=== PATIENT | female | born 1955 | race Caucasian/White ===

== ENCOUNTER 2016-12-06 09:44 | Emergency (ER) | payer OTHER ==
[2016-12-06 10:11] VITALS: BP 93/56
--- NOTE | 2016-12-06 10:22 | UC ---
Ear Complaint HPI - HPI Summary HPI Summary: ear plug stuck in left ear - History of Current Complaint Chief Complaint: UCEar Stated Complaint: EAR COMPLAINT Time Seen by Provider: 12/06/16 10:09 Hx Obtained From: Patient ?: No Onset/Duration: Sudden Onset, Lasting Days - 3 Severity Initially: Mild Severity Currently: Mild Pain Intensity: 2 Pain Scale Used: 0-10 Numeric Aggravating Factors: Nothing Alleviating Factors: Nothing Associated Signs/Symptoms: Positive: Hearing Loss, Foreign Body Sensation - Allergies/Home Medications Allergies/Adverse Reactions: Allergies Allergy/AdvReac Type Severity Reaction Status Date / Time SUGAR Allergy Congestion Uncoded 03/28/15 10:48 Home Medications: Home Medications Gabapentin TAB(NF) [Neurontin 600 mg TAB(NF)] 300 mg PO 12/06/16 [History] PMH/Surg Hx/FS Hx/Imm Hx Previously Healthy: Yes - Surgical History Surgical History: Yes Surgery Procedure, Year, and Place: anal fissure 2009. tonsillectomy. BASIL CELL REMOVED OFF NOSE - Family History Known Family History: Positive: None - Social History Occupation: Retired Lives: With Family Alcohol Use: Rare Substance Use Type: None Smoking Status (MU): Never Smoked Tobacco - Immunization History Most Recent Tetanus Shot: unknown - states she doesn't want it Review of Systems Constitutional: Negative Skin: Negative Eyes: Negative ENT: Negative, Ear Ache - hearing loss has an ear plug stuck in ear Respiratory: Negative Cardiovascular: Negative Gastrointestinal: Negative Genitourinary: Negative Motor: Negative Neurovascular: Negative Musculoskeletal: Negative Neurological: Negative Psychological: Negative All Other Systems Reviewed And Are Negative: Yes Physical Exam Triage Information Reviewed: Yes Appearance: Well-Appearing, No Pain Distress, Well-Nourished Vital Signs: Initial Vital Signs Temp 98.3 F 12/06/16 10:08 Pulse 81 12/06/16 10:08 Resp 18 12/06/16 10:08 BP 93/56 12/06/16 10:08 Pulse Ox 99 12/06/16 10:08 Vital Signs Reviewed: Yes Eye Exam: Normal Eyes: Positive: Conjunctiva Clear ENT Exam: Normal ENT: Positive: Normal ENT inspection, Hearing grossly normal, TMs normal, Other : - fb left canal removed with ear---no evidence of injury or infection. Negative: Nasal congestion, Nasal drainage, Trismus, Muffled/hoarse voice Dental Exam: Normal Neck exam: Normal Neck: Positive: Supple, Nontender, No Lymphadenopathy Respiratory Exam: Normal Respiratory: Positive: Chest non-tender, No respiratory distress, No accessory muscle use Cardiovascular Exam: Normal Cardiovascular: Positive: RRR, Pulses Normal, Brisk Capillary Refill Musculoskeletal Exam: Normal Musculoskeletal: Positive: Strength Intact, ROM Intact Neurological Exam: Normal Neurological: Positive: Alert, Muscle Tone Normal Psychological Exam: Normal Skin Exam: Normal Re-Evaluation - Re-Evaluation First Eval Change: Improved - FB removed with ease, patient reports feeling better Ear Complaint Course/Dx - Course Course Of Treatment: follow with pcp prn - Differential Dx/Diagnosis Differential Diagnosis/HQI/PQRI: Cerumen Impaction, Foreign Body, URI Provider Diagnoses: FB Removed from left ear Discharge - Discharge Plan Condition: Stable Disposition: HOME Patient Education Materials: Ear Foreign Body (ED) Referrals: Apollo Mariee MD [Primary Care Provider] - If Needed
== END 2016-12-06 10:44 | disposition home or self-care (01) ==
LOC: UCEAST 09:44
DX: T16.2XXA Foreign body in left ear, initial encounter (principal)
CPT/HCPCS: 69000; 99211; G0463

== ENCOUNTER 2018-07-07 12:46 | Emergency (ER) | payer OTHER ==
--- NOTE | 2018-07-07 14:17 | ED ---
Palpitations / Dysrhythmia - HPI Summary HPI Summary: Patient is a 62-year-old female who is presenting to the ED with concern for palpitations. She states symptoms began approximately 3 weeks ago with a near syncopal episode and sxs of vertigo. She states while these resolved, since that time, she has been having sxs of fatigue and a few episodes of heart racing. She has an appt with a scalp treatment operator in 2 weeks, but felt if she came today d/t her sxs, she may be able to see a scalp treatment operator. She denies any chest pain or shortness of breath. Denies any abdominal pain. She states she recently stopped taking her Neurontin approximately 2 weeks ago and felt this may be contributory. She is not having any sxs at this time. She takes no medications. She states she is otherwise very active and retuning does yoga, however has felt fatigued recently and has not been doing her normal activities. This is concerning for her. - History of Current Complaint Chief Complaint: EDDysrhythmPalp Time Seen by Provider: 07/07/18 12:56 Hx Obtained From: Patient Onset/Duration: Sudden Onset Timing: Constant Severity Initially: Mild Severity Currently: Mild Associated Signs & Symptoms: Negative - Risk Factors Cardiac: Negative Pulmonary Embolism: Negative Atrial Fibrillation: Negative - Allergy/Home Medications Allergies/Adverse Reactions: Allergies Allergy/AdvReac Type Severity Reaction Status Date / Time SUGAR Allergy Congestion Uncoded 07/07/18 12:52 Home Medications: Home Medications NK [No Home Medications Reported] 07/07/18 [History Confirmed 07/07/18] PMH/Surg Hx/FS Hx/Imm Hx Previously Healthy: Yes Endocrine/Hematology History: Denies: Hx Diabetes, Hx Thyroid Disease Cardiovascular History: Denies: Hx Hypertension, Hx Pacemaker/ICD Respiratory History: Denies: Hx Asthma, Hx Chronic Obstructive Pulmonary Disease (COPD) GI History: Reports: Other GI Disorders Denies: Hx Ulcer History: Denies: Hx Renal Disease Sensory History: Denies: Hx Hearing Aid Psychiatric History: Denies: Hx Panic Disorder - Cancer History Cancer Type, 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 tonsillectomy. 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 - Immunization History Hx Pertussis Vaccination: No Immunizations Up to Date: No Infectious Disease History: No Infectious Disease History: Denies: Hx Clostridium Difficile, Hx Hepatitis, Hx Human Immunodeficiency Virus (HIV), Hx of Known/Suspected MRSA, Hx Shingles, Hx Tuberculosis, Traveled Outside the [place] in Last 30 Days - Family History Known Family History: Positive: None, Other - noncontributory - Social History Occupation: Unemployed Lives: With Family Alcohol Use: None Hx Substance Use: No Substance Use Type: Reports: None Smoking Status (MU): Never Smoked Tobacco Review of Systems Negative: Fever, Chills, Fatigue, Skin Diaphoresis Negative: Dental Pain, Sore Throat Positive: Other - tachycardia. Negative: Palpitations, Chest Pain Negative: Shortness Of Breath, Cough Genitourinary: Negative Positive: no symptoms reported, see HPI Negative: Rash, Bruising Psychological: Normal All Other Systems Reviewed And Are Negative: Yes - any crepitus Physical Exam Triage Information Reviewed: Yes Vital Signs On Initial Exam: Initial Vitals Temp Pulse Resp BP Pulse Ox 97.7 F 83 16 100/66 100 07/07/18 12:49 07/07/18 12:49 07/07/18 12:49 07/07/18 12:49 07/07/18 12:49 Vital Signs Reviewed: Yes Appearance: Positive: Well-Appearing, Well-Nourished Skin: Positive: Warm, Skin Color Reflects Adequate Perfusion Head/Face: Positive: Normal Head/Face Inspection Eyes: Positive: EOMI, NORBERTO, Conjunctiva Clear Neck: Positive: Supple, No Lymphadenopathy Respiratory/Lung Sounds: Positive: Clear to Auscultation, Breath Sounds Present Cardiovascular: Positive: RRR, Pulses are Symmetrical in both Upper and Lower Extremities Musculoskeletal: Positive: Normal, Strength/ROM Intact Neurological: Positive: Sensory/Motor Intact, Alert, Oriented to Person Place, Time Psychiatric: Positive: Normal, Affect/Mood Appropriate Diagnostics - Vital Signs Vital Signs Temp Pulse Resp BP Pulse Ox 07/07/18 12:49 97.7 F 83 16 100/66 100 - Laboratory Result Diagrams: 07/07/18 14:14 07/07/18 14:14 Lab Statement: Any lab studies that have been ordered have been reviewed, and results considered in the medical decision making process. Course/Dx - Course Course Of Treatment: During the course of treatment, the patient is evaluated for a few episodes of feeling tachycardic. She is concerned for her heart. Labs obtained which show a troponin I 0.00. Chest x-ray shows no acute cardiopulmonary disease. Vital signs are stable. Discussed with patient at length these findings. Still awaiting T4 and TSH which could be contributory. She states she always feels her thyroid is off, but his been told in the past this is normal for her. She states she probably will not follow up with the scalp treatment operator in 2 weeks if everything is normal. I have encouraged her to continue that follow-up to the scalp treatment operator in 2 weeks, however everything today is stable and she is okay for discharge at this time. - Diagnoses Provider Diagnoses: Tachycardia Discharge - Sign-Out/Discharge Documenting (check all that apply): Patient Departure Patient Received Moderate/Deep Sedation with Procedure: No - Discharge Plan Condition: Stable Disposition: HOME Patient Education Materials: Tachycardia (ED) Referrals: Apollo Mariee MD [Primary Care Provider] - Chema Smalls MD [Medical Doctor] - Additional Instructions: I have given you a cardiology referral If any symptoms become worse - return to the ED I have given you information for tachycardia, however you did not have this today during your visit - Billing Disposition and Condition Condition: STABLE Disposition: Home
[2018-07-07 14:23] LABS: ABS Basophils 0.1 10^3/ul (0-0.2); ABS Eosinophils 0.1 10^3/ul (0-0.6); ABS Lymphocytes 1.3 10^3/ul (1.0-4.8); ABS Monocytes 0.5 10^3/ul (0-0.8); ABS Neutrophils 2.5 10^3/ul (1.5-7.7); ABS Nucleated RBC 0 10^3/ul; Hematocrit 39 % (33-41); Hemoglobin 13.2 g/dL (12.0-16.0); Lymphocyte % 28.8 %; Mean Corpuscular HGB Conc 34 g/dL (31-36); Mean Corpuscular Hemoglobin 32 pg (27-31); Mean Corpuscular Volume 93 fL (80-97); Mean Platelet Volume 7.3 fL (7.4-10.4); Nucleated Red Blood Cells % 0; Platelet Count 234 10^3/uL (150-450); Red Blood Count 4.19 10^6 /uL (3.70-4.87); Red Cell Distribution Width 13 % (10.5-15); White Blood Count 4.5 10^3/uL (3.5-10.8)
--- OUTSIDE RECORDS SUMMARY | 2018-07-07 14:25 | XMS REPORT | Continuity of Care Document ---
:1955 External Reference #:[id number] Author Name Forrest Thomson MD Address [address] [place] [address] Care Team Providers Name Role Phone Apollo Mariee MD Care Team Information Chief Electrician Unavailable Apollo Mariee MD Primary Care Physician Unavailable Payers Date Identification Numbers Payment Provider Subscriber Policy Number: [id number] [facility] Estefanía Mohan Group Number: [id number] [address] Group Name: [place] [address] PayID: [id number] Advance Directives Description No Information Available Problems Date Description Provider Status Onset: 03/16/2007 Hypothyroidism Apollo Mariee M.D. Active Onset: 03/16/2007 Restless legs Apollo Mariee M.D. Active Onset: 12/07/2017 Telogen effluvium Apollo Mariee M.D. Active Onset: 10/28/2016 Chronic pain syndrome Apollo Mariee M.D. Active Onset: 02/10/2016 Elongated styloid process syndrome Keenan Briseno M.D. Active Onset: 07/20/2013 Backache Keenan Briseno M.D. Active Onset: 07/20/2013 Disorder of shoulder Keenan Briseno M.D. Active Onset: 04/15/2011 Cough Apollo Mariee M.D. Active Onset: 04/15/2011 H/O: food allergy Apollo Mariee M.D. Active Onset: 04/15/2011 Simple goiter Apollo Mariee M.D. Active Family History Date Family Member(s) Observation Comments Father Alzheimer's Disease Father Prostate Cancer Onset: (age 54 Years) Mother Colon Cancer Social History Type Date Description Comments Sex Unknown Marital Status Patient is single Living Situation Friend Employment Currently working - running a guest house Tobacco Use Start: Unknown End: Former Cigarette Smoker Unknown ETOH Use Rare Tobacco Use Start: Unknown Patient has never smoked Exercise Type/Frequency Exercises sporadically Current Allergies, Adverse Reactions, Alerts Description No Known Drug Allergies Medications Medication Date Status Form Strength Qnty SIG Indications Ordering Provider Gabapentin 10/28 Active Capsules 300mg 90cap take one Apollo A. s capsule Kodi, by mouth M.D. once a day as directed Supplements Active as Unknown /0000 directed Flector 12/22 Hx Patches 1.3% 60uni apply one Apollo ts patch to Kodi - the most M.DDeeap 06/09 painful /2019 area twice a day Physical Therapy 10/28 Hx treatment M25.562 Apollo A. and Kodi - evaluatio M.D. 12/07 n of back pain Cyclobenzaprine 02/09 Hx Tablets 5mg 30tab take 1 to M54.89 Keenan T. s 2 tablets Finn, - by mouth M.D. 10/28 at bedtime for muscle spasms Physical Therapy 03/05 Hx treatment M25.562 and Kameron, - evaluatio Afnp-C 02/09 n of L knee pain Physical Therapy 07/20 Hx treatment Keenan T. and Finn, - evaluatio M.D. 03/05 n shoulder pain Physical Therapy 01/19 Hx treatment Apollo A. and Kodi, - evaluatio M.D. 03/20 n back,Neck And Hip pain Levaquin 10/08 Hx Tablets 500mg 10tab 1 po qd x s 10 days [facility] 09/29 Of Doxycycline 09/30 Hx Capsules 100mg 20cap 1 po bid cl s X 2 [facility] 09/29 Of Gabapentin 04/25 Hx Tabs 600mg 30tab take 1/2 s to 1 Kameron, - tablet at Afnp-C 02/09 bedtime Requip 05/23 Hx PO Q hs [facility] 08/29 Of Multivitamins 05/23 Hx Tablets 30tab as s Directed [facility] 04/15 Of Neurontin 03/16 Hx Capsules 600mg 30cap 1/2 or 1 Apollo A. /2006 s po qhs Kodi - M.D. 08/29 Hormone Cream 01/28 Hx Cream Compounded 30Day biest Olvin Nguyen /2005 80/20 Finver, - 0.25mg/0. M.D. 03/16 2cc ; progester one 50mg/0.2c c apply 0.1cc bid as directed Saliva Testing 11/18 Hx Single 1Kit full Olvin Nguyen Hormones Cortisol female Florence - panel M.D. 03/16 cortisol. PT will be calling. [place] Thyroid 09/21 Hx Tablets 15mg 60tab 1 po bid Olvin JDeepa /2005 s on empty Florence - stomach M.D. 05/23 Neurontin 09/10 Hx Capsules 300mg 1 as needed Medicine - for back [facility] 03/16 pain Of Melatonin 00/00 Hx Tablets 3mg 2 po qhs Unknown /0000 prn - 02/09 Melatonin 00/00 Hx Capsules 5mg 30cap one tab Unknown /0000 s po qhs - 07/20 Immunizations Description No Information Available Vital Signs Date Vital Result Comment 06/09/2018 1:36pm BP Systolic 100 mmHg BP Diastolic 44 mmHg Heart Rate 84 /min Body Temperature 97.7 F Respiratory Rate 17 /min Weight 126.00 lb 12/07/2017 11:05am BP Systolic 100 mmHg BP Diastolic 60 mmHg Heart Rate 76 /min Body Temperature 98.9 F Respiratory Rate 16 /min Height 65.75 inches 5'5.75" Weight 127.00 lb BMI (Body Mass Index) 20.7 kg/m2 10/28/2016 4:32pm BP Systolic 124 mmHg BP Diastolic 72 mmHg Heart Rate 80 /min Body Temperature 99.0 F Respiratory Rate 16 /min Height 65.75 inches 5'5.75" Weight 126.50 lb BMI (Body Mass Index) 20.6 kg/m2 02/10/2016 8:31pm BP Systolic 100 mmHg BP Diastolic 64 mmHg Heart Rate 60 /min Body Temperature 98.1 F Respiratory Rate 16 /min Height 65.75 inches 5'5.75" Weight 123.12 lb BMI (Body Mass Index) 20.0 kg/m2 03/05/2015 1:49pm BP Systolic 90 mmHg BP Diastolic 60 mmHg Heart Rate 72 /min Body Temperature 97.6 F Respiratory Rate 16 /min Height 65.75 inches 5'5.75" Weight 124.00 lb BMI (Body Mass Index) 20.2 kg/m2 07/20/2013 11:28am BP Systolic 94 mmHg BP Diastolic 60 mmHg Heart Rate 78 /min Body Temperature 97.4 F Respiratory Rate 16 /min Height 65.75 inches 5'5.75" Weight 124.00 lb BMI (Body Mass Index) 20.2 kg/m2 04/15/2011 7:56pm BP Systolic 100 mmHg BP Diastolic 60 mmHg Heart Rate 84 /min Body Temperature 97.7 F Respiratory Rate 16 /min O2 % BldC Oximetry 98 % Height 65.75 inches 5'5.75" Weight 124.00 lb BMI (Body Mass Index) 20.2 kg/m2 10/08/2008 10:35am BP Systolic 88 mmHg BP Diastolic 52 mmHg Heart Rate 84 /min Body Temperature 97.4 F Respiratory Rate 16 /min Weight 126.00 lb 10/01/2008 8:34am BP Systolic 100 mmHg BP Diastolic 70 mmHg Heart Rate 88 /min Body Temperature 100.8 F Respiratory Rate 16 /min 08/29/2008 11:42am BP Systolic 100 mmHg BP Diastolic 58 mmHg Heart Rate 68 /min Body Temperature 98.8 F Height 65.75 inches 5'5.75" Weight 129.00 lb BMI (Body Mass Index) 21.0 kg/m2 05/23/2007 3:10pm BP Systolic 100 mmHg BP Diastolic 48 mmHg Heart Rate 68 /min Body Temperature 98.1 F Respiratory Rate 12 /min Height 65.75 inches 5'5.75" Weight 133.00 lb BMI (Body Mass Index) 21.6 kg/m2 03/16/2007 1:42pm BP Systolic 92 mmHg BP Diastolic 60 mmHg Heart Rate 74 /min Respiratory Rate 16 /min Height 65.75 inches 5'5.75" Weight 127.00 lb BMI (Body Mass Index) 20.7 kg/m2 04/15/2006 1:18pm BP Systolic 90 mmHg BP Diastolic 52 mmHg Heart Rate 72 /min Height 65.75 inches 5'5.75" Weight 137.00 lb BMI (Body Mass Index) 22.3 kg/m2 01/28/2006 4:09pm BP Systolic 92 mmHg BP Diastolic 52 mmHg Heart Rate 68 /min Height 65.75 inches 5'5.75" Weight 127.00 lb BMI (Body Mass Index) 20.7 kg/m2 11/18/2005 11:03am BP Systolic 86 mmHg BP Diastolic 46 mmHg Heart Rate 72 /min Height 65.75 inches 5'5.75" Weight 127.00 lb BMI (Body Mass Index) 20.7 kg/m2 09/21/2005 11:42am BP Systolic 122 mmHg BP Diastolic 80 mmHg Height 65.75 inches 5'5.75" Weight 126.00 lb BMI (Body Mass Index) 20.5 kg/m2 09/10/2005 1:44pm BP Systolic 110 mmHg BP Diastolic 62 mmHg Heart Rate 76 /min Height 65.75 inches 5'5.75" Weight 126.00 lb BMI (Body Mass Index) 20.5 kg/m2 Results Test Date Facility Test Result H/L Range Note Laboratory test 06/09/2018 [facility] ([facility]) TSH <pending> 0.5-5.0 finding CBC Auto Diff 04/27/2017 [facility] White Blood 3.7 10^3/uL N 3.5-10.8 Count Red Blood Count 4.41 10^6/uL N 4.0-5.4 Hemoglobin 14.0 g/dL N 12.0-16.0 Hematocrit 42 % N 35-47 Mean Corpuscular Volume 95 fL N 80-97 Mean Corpuscular Hemoglobin 32 pg High 27-31 Mean Corpuscular HGB Conc 34 g/dL N 31-36 Red Cell Distribution Width 12 % N 10.5-15 Platelet Count 233 10^3/uL N 150-450 Mean Platelet Volume 8 um3 N 7.4-10.4 Abs Neutrophils 2.0 10^3/uL N 1.5-7.7 Abs Lymphocytes 1.2 10^3/uL N 1.0-4.8 Abs Monocytes 0.3 10^3/uL N 0-0.8 Abs Eosinophils 0.1 10^3/uL N 0-0.6 Abs Basophils 0.1 10^3/uL N 0-0.2 Abs Nucleated RBC 0 10^3/uL Granulocyte % 52.9 % N 38-83 Lymphocyte % 33.5 % N 25-47 Monocyte % 8.9 % N 1-9 Eosinophil % 3.0 % N 0-6 Basophil % 1.7 % N 0-2 Nucleated Red Blood Cells % 0.1 Comp Metabolic Panel 04/27/2017 [facility] Sodium 141 mmol/L N 133-145 Potassium 4.4 mmol/L N 3.5-5.0 Chloride 104 mmol/L N 101-111 Co2 Carbon Dioxide 32 mmol/L N 22-32 Anion Gap 5 mmol/L N 2-11 Glucose 95 mg/dL N 70-100 Blood Urea Nitrogen 21 mg/dL N 6-24 Creatinine 0.83 mg/dL N 0.51-0.95 BUN/Creatinine Ratio 25.3 High 8-20 Calcium 9.6 mg/dL N 8.6-10.3 Total Protein 6.9 g/dL N 6.4-8.9 Albumin 4.4 g/dL N 3.2-5.2 Globulin 2.5 g/dL N 2-4 Albumin/Globulin Ratio 1.8 N 1-3 Total Bilirubin 0.50 mg/dL N 0.2-1.0 Alkaline Phosphatase 49 U/L N 34-104 Alt 16 U/L N 7-52 Ast 21 U/L N 13-39 Egfr Non- 69.9 >60 Egfr 89.9 >60 1 Lipid Profile (Trig/Chol/HDL) 04/27/2017 [facility] Triglycerides 43 mg/dL 2 Cholesterol 268 mg/dL 3 HDL Cholesterol 98.0 mg/dL 4 LDL Cholesterol 161 mg/dL 5 Iron & Iron Binding Capacity 04/27/2017 [facility] Iron 101 g/dL N 50-212 Unsaturated Iron Binding 292 g/dL Total Iron Binding Capacity 393 g/dL N 250-450 % Iron Saturation 26 % N 15-55 Laboratory test finding 04/27/2017 [facility] CRP High Sensitivity < 0.20 mg/L 6 TSH (Thyroid Stim Horm) 0.95 mcIU/mL N 0.34-5.60 Free T4 (Free Thyroxine) 0.99 ng/dL N 0.61-1.12 T3 Free 3.10 pg/mL N 2.5-3.9 T3 Total 0.88 ng/mL N 0.87-1.78 Ferritin 34.7 ng/mL N 11-307 Thyroperoxidase AB 0.72 IU/mL N <9 Folic Acid (Folate) 19.00 ng/mL >3.99 Vitamin B12 638 pg/mL N 180-914 7 Vitamin D Total 25(Oh) 46.3 ng/mL N 20-50 Thyroglobulin AB <1.8 IU/mL <4.0 8 T3 Reverse 17 ng/dL 10-24 9 CBC Electronic (a) 10/28/2016 [facility] WBC 6.2 3.6-9.6 (607)- - RBC 4.15 3.90-5.70 Hemoglobin ([facility]/CTX) 13.5 g/dL 12.1 - 17.2 Hematocrit ([facility]/CTX) 39.2 % 36.1 - 50.3 Platelets 203 10^3/ul 150-400 Lymph% 31.9 % 17.0-48.0 Mixed% 5.5 Neutrophils % 62.6 Mean Corpuscular Vol 94 82.2-97.4 Mean Corpuscular Hemoglobin 32.7 27.6-33.3 Mean Corpuscular Hemo Concen 34.6 32.0-36.0 RDW 12.8 11.6-13.7 Mean Platelet Volume 7.5 5.5-11.0 Lipid Profile 10/28/2016 Alan Kessler ([facility]) Cholesterol 225 mg/dL High 120-200 10 Triglycerides 118 mg/dL 30-200 HDL Cholesterol 94 mg/dL High 30-85 LDL (Calculated) 107 CALC 0-129 VLDL Cholesterol 24 mg/dL 0-50 HDL Risk Factor 2.4 CALC 0.0-4.4 Comprehensive Metabolic 10/28/2016 Alan Kessler ([facility]) Sodium 138 mEq/L 134-149 Prof Potassium 3.9 mEq/L 3.6-5.5 Chloride 97 mEq/L 94-112 Carbon Dioxide 23 mEq/L 21-32 Glucose 130 mg/dL High 70-105 11 BUN 15 mg/dL 6-26 Creatinine 0.7 mg/dL 0.6-1.4 BUN/Creat Ratio 21.4 CALC 8.0-36.0 Calcium 9.1 mg/dL 8.6-10.2 Total Protein 6.6 g/dL 6.4-8.3 Albumin 4.2 g/dL 3.8-5.5 Globulin 2.4 g/dL 2.0-4.8 A/G Ratio 1.8 CALC 0.6-2.3 Alk. Phosphatase 58 U/L 30-110 Alt (SGPT) 14 U/L 7-35 Ast (Sgot) 19 U/L 5-34 Total Bilirubin 0.4 mg/dL 0.2-1.3 GFR Non- >60 ml/min/1.73m^ >=60 GFR >60 ml/min/1.73m^ >=60 Laboratory test 10/28/2016 [facility] ([facility]) TSH 1.01 mIU/L 0.50- 6.00 finding Laboratory test 10/28/2016 [facility] HCV Antibody <0.1 0.0-0.9 finding [address] [facility] [place] [address] (603)- - Laboratory test 05/04/2011 [facility] ([facility]) TSH 1.91 mIU/L 0.50- 6.00 14 finding Laboratory test 05/04/2011 [facility] T-4 Total 9.9 g/dL 4.5-10.9 15 finding [address] [place] [address] [phone] Laboratory test 04/14/2011 [facility] T-3 Uptake 1.13 TURATIO 0.75-1.23 16 finding [address] [place] [address] [phone] Vitamin D,1,25 Dihydro 38.9 pg/mL 10.0-75.0 Vitamin D, 25 Oh 24.4 ng/mL Low 30.0-100.0 17 Antithyroglobulin AB <20 IU/mL 0-40 18 Thyroid Peroxidase AB 9 IU/mL 0-34 T-3 Total 89.2 ng/dL 71.0-180.0 Laboratory test finding 04/10/2011 [facility] ([facility]) Ferritin 25 ng/mL 15-200 Free T3 2.38 pg/mL 2.00-4.90 Laboratory test 04/10/2011 [facility] ([facility]) Free T4 1.00 ng/dL 0.75- 1.54 finding CBC Manual Diff-[facility] 04/10/2011 [facility] WBC 4.9 3.6-9.6 (607)- - RBC 4.10 3.90-5.70 Hemoglobin ([facility]/CTX) 13.2 g/dL 12.1 - 17.2 Hematocrit ([facility]/CTX) 39.5 % 36.1 - 50.3 Mean Corpuscular Vol 96.3 82.2-97.4 Mean Corpuscular Hemoglobin 32.2 27.6-33.3 Mean Corpuscular Hemo Concen 33.4 32.0-36.0 Platelets 215 10^3/ul 150-400 RDW 12.5 11.6-13.7 Mean Platelet Volume 10.8 6.5-11.0 Neutrophil 47 Band 10 Lymphocytes 31 Monocyte 1 Eosinophils 2 Atypical Lymph 9 # Comment rbc/plt normal Comprehensive Metabolic 04/10/2011 [facility] ([facility]) Albumin 4.4 g/dL 3.8-5.5 Prof Alk. Phos. 57 U/L 30-110 Alt (SGPT) 32 U/L 7-35 Ast (Sgot) 33 U/L 5-34 BUN 14 mg/dL 6-26 Calcium 9.4 mg/dL 8.6-10.2 Chloride 101 mEq/L 94-112 Creatinine 0.8 mg/dL 0.6-1.4 Carbon Dioxide 29 mEq/L 21-32 Glucose 97 mg/dL 70-105 Sodium 139 mEq/L 134-149 Total Bilirubin 0.6 mg/dL 0.2-1.3 Total Protein 6.7 g/dL 6.3-8.1 Potassium 4.1 mEq/L 3.6-5.5 Globulin 2.3 g/dL 2.0-4.8 A/G Ratio 1.9 Calc 0.6-2.2 BUN/Creat Ratio 17.4 Calc 8.0-36.0 Lipid Profile 04/10/2011 [facility] ([facility]) Cholesterol 227 mg/dL High 120-200 HDL 89 mg/dL High 30-85 Triglycerides 47 mg/dL 30-200 HDL Risk Factor 2.5 CALC 0.0-4.0 LDL (Calculated) 128 CALC 0-129 VLDL (Calculated) 9 mg/dL 0-50 Culture Stool 01/02/2011 [facility] Stool Specimen Description TNP 19, 20 Bacterial Identification CAMPYLOBACTER SP <SEE NOTE> 21 O P: Giardia/Crypto Screen NEGATIVE BY [facility] <SEE NOTE> 22 Laboratory test 01/02/2011 [facility] O P: Giardia/Crypto NEGATIVE BY [facility] 23 finding Screen <SEE NOTE> Stool Cult Sensitivity NF 24 Shiga Toxin 1 And 2 (Ehec) NEGATIVE BY [facility] <SEE NOTE> 25 Bacterial Id Nysdoh FINAL IDENTIFICA <SEE NOTE> 26 Laboratory test 10/02/2008 [facility] Lyme Disease Negative Negative 27 finding Serology Anaerobic Culture 10/01/2008 [facility] Anaerobic Culture NG5 28, 29 Bottle Bottle Aerobic Culture Bottle 10/01/2008 [facility] Aerobic Culture NG5 30 Bottle Aerobic Culture Bottle 10/01/2008 [facility] Aerobic Culture NG5 31 Bottle Anaerobic Culture 10/01/2008 [facility] Anaerobic Culture NG5 32 Bottle Bottle CBC With Manual Diff 10/01/2008 [facility] White Blood Count 8.3 CUMM 4.8-10.8 Stat Red Cell Count 3.93 CUMM Low 4.2-5.4 Hemoglobin 12.6 g/dL 12.0-16.0 Hematocrit 36 % 35-47 Mean Corpuscular Volume 92 um3 79-97 Mean Corpuscular Hemoglob 32 pg High 27-31 Mean Corpuscular HGB Cone 35 g/dL 32-36 Redcell Distribution WDTH 12 % 10.5-15 Platelet Count 184 CUMM 150-450 Mean Platelet Volume 8.8 um3 7.4-10.4 Polysegmented Neutrophil 90 % High 38-83 Lymphocyte 3 % Low 25-47 Monocyte 6 % 0-13 Eosenophil 1 % 0-6 Absolute Neutrophil Count 7.4 Anisocytosis SLIGHT Laboratory test 10/01/2008 [facility] C Reactive Protein < 0.5 mg/dL Less Than 0.5 finding Comp Stat 10/01/2008 [facility] Sodium 137 mmol/L 135-145 Potassium 4.0 mmol/L 3.5-5.0 Chloride 104 mmol/L 101-111 Co2 (Carbon Dioxide) 26.0 mmol/L 22-32 Anion Gap 7.0 mmol/L 2-11 33 Glucose 149 mg/dL High 70-100 34 BUN 9 mg/dL 6-24 Creatinine 0.80 mg/dL 0.50-1.40 One Over Creatinine 1.20 BUN/Creatinine Ratio 11.3 8-20 Calcium 9.0 mg/dL 8.1-9.9 35 Total Protein 6.1 GM/DL Low 6.2-8.1 Albumin 3.5 GM/DL Low 3.6-5.4 Globulin 2.6 GM/DL 2-4 Albumin/Globulin Ratio 1.3 1-3 Bilirubin Total 0.6 mg/dL 0.4-1.5 36 Alkaline Phosphatase 74 U/L 30-110 Alt (SGPT) 28 U/L 14-54 Ast (Sgot) 31 U/L 12-42 Laboratory test 09/30/2008 [facility] Lyme Disease Negative Negative 37 finding Serology Laboratory test 08/29/2008 [facility] ([facility]) TSH 0.50 mIU/L 0.50- 6.00 38 finding Complete Blood 08/29/2008 [facility] ([facility]) WBC 5.9 x10^3/uL 3.6-9.6 Count Gran# 3.8 x10^3/uL 1.5-7.2 Gran% 65.0 % 42.2-75.2 HCT 39 % 36-50 HGB 13.1 g/dL 12.1-17.2 Lymph# 1.7 x10^3/uL 0.7-4.9 Lymph% 28.1 % 20.5-51.1 MCH 31.1 pg 27.6-33.3 MCV 92.5 fL 82.2-97.4 MCHC 33.7 g/dL 33.0-35.5 Mo# 0.4 x10^3/uL 0.1-0.9 Mo% 6.9 % 1.7-9.3 MPV 9.2 fL 7.4-10.4 PLT 197 x10^3/uL 150-400 RBC 4.22 x10^6/uL 3.90-5.70 RDW 11.7 % 11.6-13.7 Laboratory test 05/05/2007 [facility] Antinuclear AB NEGATIVE Negative 39 , 40 finding 28 [facility] (Melia) [place] [id number] [phone] Comprehensive 04/01/2007 [facility] ([facility]) Albumin 4.3 g/dL 3.8-5.5 41 Metabolic Prof Alk. Phos. 52 U/L 30-110 Alt (SGPT) 15 U/L 7-35 Ast (Sgot) 20 U/L 5-34 BUN 12 mg/dL 6-26 Calcium 9.3 mg/dL 8.6-10.2 Chloride 94 mEq/L 94-112 Creatinine 0.9 mg/dL 0.6-1.4 Carbon Dioxide 31 mEq/L 21-32 Glucose 87 mg/dL 70-105 Sodium 137 mEq/L 134-149 Total Bilirubin 0.4 mg/dL 0.2-1.3 Total Protein 7.0 g/dL 6.3-8.1 Potassium 3.6 mEq/L 3.6-5.5 Globulin 2.7 g/dL 2.0-4.8 A/G Ratio 1.6 Calc 0.6-2.2 BUN/Creat Ratio 13.3 Calc 8.0-36.0 Lipid Profile 04/01/2007 [facility] ([facility]) Cholesterol 191 mg/dL 120- 200 HDL 84 mg/dL 30-85 Triglycerides 64 mg/dL 30-200 HDL Risk Factor 2.3 CALC Low 4.2-7.0 LDL (Calculated) 95 CALC 0-129 VLDL (Calculated) 13 mg/dL 0-50 Laboratory test finding 03/25/2007 [facility] ([facility]) TSH 1.34 mIU/L 0.50-6.00 Free T4 1.14 ng/dL 0.75-1.54 Laboratory test finding 03/25/2007 [facility] FSH 113.6 mIU/ml 42, 43 [address] [place] [id number] [phone] LH 67.0 mIU/ml 44 Testosterone, Total 54.1 ng/dL 14.0-76.0 Laboratory test 04/15/2006 [facility] TSH (a/[facility]) 0.44 Low 0.5-6.0 finding (607)- - SHANE'D uIU/ml Free T4 ([facility]) 1.08 ng/dL 0.75-1.54 Free T3 ([facility],CX) 3.03 pg/mL 2.0-4.9 Laboratory test 11/02/2005 [facility] TSH (a/[facility]) 0.49 Low 0.5-6.0 finding (607)- - RESULT SHANE'D uIU/ml Free T4 ([facility]) 1.26 ng/dL 0.75-1.54 Free T3 ([facility],CX) 2.88 pg/mL 2.0-4.9 Laboratory test 09/10/2005 [facility] Sed Rate ([facility]) 10 MM finding (607)- - TSH ([facility]) 1.71 uIU/ml 0.5-6.0 Free T4 ([facility]) 1.25 ng/dL 0.75-1.54 Free T3 ([facility],CX) 2.44 pg/mL 2.0-4.9 Laboratory 09/10/2005 [facility] CRP (High 0.21 0.00-3.00 45, 46 test finding [address] Sensitivity) mg/[place] [address] [phone] Anti Thyroid 09/10/2005 [facility] Thyroid <10.00 0.00-35.[address] Peroxidase AB IU/[place] [address] [phone] Laboratory 09/10/2005 [facility] Anti <20.0 0.0-40.0 test finding [address] Thyroglobulin AB IU/[place] [address] [phone] 1 Because ethnic data is not always readily available, this report includes an eGFR for both -Americans and non- Americans. The National Kidney Disease Education Program (NKDEP) does not endorse the use of the MDRD equation for patients that are not between the ages of 18 and 70, are , have extremes of body size, muscle mass, or nutritional status, or are non- or non-. According to the National Kidney Foundation, irrespective of diagnosis, the stage of the disease is based on the level of kidney function: Stage Description GFR(mL/min/1.73 m(2)) 1 Kidney damage with normal or decreased GFR 90 2 Kidney damage with mild decrease in GFR 60-89 3 Moderate decrease in GFR 30-59 4 Severe decrease in GFR 15-29 5 Kidney failure <15 (or dialysis) 2 Desirable: <150 Borderline High: 150-199 High: 200-499 Very High: >500 3 Desirable: <200 Borderline High: 200-239 High: >239 4 Low: <40 Desirable: 40-60 High: >60 5 Desirable: <100 Near Optimal: 100-129 Borderline High: 130-159 High: 160-189 Very High: >189 6 Low risk: <1.00 Average risk: 1.00-3.00 High risk: >3.00 7 Normal Range 180 to 914 Indeterminate Range 145 to 180 Deficient Range <145 8 ADDITIONAL INFORMATION The thyroglobulin antibody testing method is an immunoenzymatic assay manufactured by [employer]. and performed on the [employer] DXI 800. Values obtained from different assay methods or kits may be different and cannot be used interchangeably. The results cannot be interpreted as absolute evidence for the presence or absence of malignant disease. Test Performed by: [facility] - [address] [address] 9 ADDITIONAL INFORMATION This test was developed and its performance characteristics determined by [facility] in a manner consistent with CLIA requirements. This test has not been cleared or approved by the U.S. Food and Drug Administration. Test Performed by: [facility] - [facility] [employer] [address] [place] [id number] 10 consistent w/ previous results 11 NON-FASTING 12 1 sst 13 Negative: < 0.8 Indeterminate: 0.8 - 0.9 Positive: > 0.9 The CDC recommends that a positive HCV antibody result be followed up with a HCV Nucleic Acid Amplification test (311365). 14 FASTING 15 FASTING; 1 SST 16 2SST 17 Vitamin D deficiency has been defined by the [place] of [employer] and an Endocrine Society practice guideline as a level of serum 25-OH vitamin D less than 20 ng/mL (1,2). The Endocrine Society went on to further define vitamin D insufficiency as a level between 21 and 29 ng/mL (2). 1. IOM ([place] of [employer]). 2011. Dietary reference intakes for calcium and D. [place]: The National Academies Press. 2. Mejia RICO, Cynthia AVERY, Nancy BELLO, et al. Evaluation, treatment, and prevention of vitamin D deficiency: an Endocrine Society clinical practice guideline. JCEM. 2010; 96(7):1911-30. 18 [employer] ([employer]) ICMA Methodology 19 VERBAL TO AJIT/ BY JUANY at 1357 on 01/03/11. 20 Test not performed 21 CAMPYLOBACTER SPECIES 22 NEGATIVE BY IMMUNOASSAY NEGATIVE BY IMMUNOASSAY 23 NEGATIVE BY IMMUNOCHROMATOGRAPHIC ASSAY NEGATIVE BY IMMUNOCHROMATOGRAPHIC ASSAY 24 NEGATIVE FOR THE ENTERIC PATHOGENS - SALMONELLA, SHIGELLA, AEROMONAS, PLESIOMONAS AND YERSINIA. VIBRIO AND E. COLI 0157 NOT ROUTINELY TESTED FOR IN A STOOL CULTURE. PLEASE SUBMIT SAMPLE WITH SPECIFIC REQUEST FOR DESIRED ORGANISM(S). 25 NEGATIVE BY IMMUNOCHROMATOGRAPHIC ASSAY NEGATIVE BY IMMUNOCHROMATOGRAPHIC ASSAY 26 FINAL IDENTIFICATION Campylobacter jejuni was identified. Major Tests Performed Campylobacter DNA by real-time PCR: Positive for Campylobacter jejuni DNA. Test Performed by [facility] [address], [place] [address] 27 Test Performed by: [facility] [address] [place], [place] [id number] Heavy Lift Rigger: Brock Buitrago III, M.D. 28 COMMENTS? X2 29 NO GROWTH AFTER 5 DAYS 30 NO GROWTH AFTER 5 DAYS 31 NO GROWTH AFTER 5 DAYS 32 NO GROWTH AFTER 5 DAYS 33 Anion gap measurement may be of limited value in the presence of any alkalosis, especially in a combined acid base disorder. . 34 Note change in reference range as of 12/07/07. The change was based on recommendations from the [place] [employer]. 35 Please note change in reference range effective 07 . 36 A metabolite of Naproxen, O-desmethylnaproxen, has been shown to interfere with the [place] method for measuring total bilirubin. Samples from patients who have taken Naproxen have shown spurious elevation in total bilirubin levels. 37 Test Performed by: [facility] [address] [place], [place] [id number] Heavy Lift Rigger: Brock Buitrago III, M.D. 38 result rechecked 39 1 SST 40 (Performed by Enzyme Immunoassay, EIA) 41 FASTING 42 1 SST 43 . Normally Menstruating Females: Follicular Phase: 2.5-10.2 Mid-Cycle Peak : 3.4-33.4 Luteal Phase : 1.5-9.1 ..............: <0.3 Postmenopausal........: 23.0-116.3 Males.................: 1.4-18.1 . 44 . Normally Menstruating Females: Follicular Phase: 1.9-2.5 Mid-Cycle Peak : 8.7-76.3 Luteal Phase : 0.5-16.9 ..............: <0.1-1.5 Postmenopausal........: 15.9-54.0 Contraceptives........: 0.7-5.6 Males (age 20-70 yrs).: 1.5-9.3 Males (age >70 yrs)...: 3.1-34.0 Children..............: 0.1-6.0 . 45 2 SST TUBES 46 . hs-CRP Result (mg/L) Risk Level <1.0 Low 1.0-3.0 Average >3.0 High Patients with persistently unexplained, marked elevation of hs-CRP (greater than 10 mg/L) after repeated testing should be evaluated for non-cardiovascular etiologies. . Procedures Date Code Description Status 06/09/2018 71407 Electrocardiogram Complete Completed 11/18/2016 [id number] Mammogram Completed 08/16/2016 [id number] Mammogram Completed 04/15/2011 37742 Pulse Oximetry Completed 09/12/2008 [id number] Mammogram Completed 05/11/2007 [id number] Colonoscopy Completed Encounters Type Date Location Provider Dx Diagnosis Office Visit 12/07/2017 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 Office Visit 03/05/2015 1:45p Main Office Lata M25.562 Pain in left knee Kameron, Afnp-C G25.81 Restless legs syndrome Office Visit 07/20/2013 11:20a Main Office Keenan Briseno, 726.19 Shoulder Disorders M.D. Other Spec 724.5 Backache Unspec Office Visit 04/15/2011 8:00p Main Office Apollo Mariee M.D. 240.0 Goiter Simple 333.94 Restless Legs Syndrome V15.05 Allergy To Other Foods 786.2 Cough Office Visit 10/08/2008 10:30a [facility] Apollo Barnhart 682.6 Cellulitis & Reji Mariee Abscess Leg Except Foot Office Visit 10/01/2008 8:30a [facility] Apollo Barnhart 682.6 Cellulitis & Reji Mariee Abscess Leg Except Foot Office Visit 08/29/2008 11:40a Main Office Apollo Barnhart 333.94 Restless Legs Reji Mariee Syndrome 244.9 Hypothyroidism Other Unspec 729.1 Myalgia & Myositis Unspec V76.10 Screening For Malignant Neoplasm Breast V76.2 Screening Malignant Neoplasm Cervix 995.3 Allergy Unspec Office Visit 05/23/2007 3:00p Main Office Apollo Mariee 729.1 Myalgia & Myositis Betty.Vijay Unspec 717.5 Derangement Meniscus Not Elsewhere Classified Office Visit 03/16/2007 1:40p Main Office Apollo Barnhart 244.9 Hypothyroidism Other Reji Mariee Unspec 627.2 Menopausal Or Female Climacteric State, Symptomatic V77.91 Screening For Lipoid Disorders 333.94 Restless Legs Syndrome Office Visit 04/15/2006 1:10p Main Office Olvin Henriquez 627.2 Menopausal Or Female M.DDeepa Climacteric State, Symptomatic 244.9 Hypothyroidism Other Unspec Office Visit 01/28/2006 4:10p Main Office Olvin Phoenix7.2 Menopausal Or Female Reji Henriquez Climacteric State, Symptomatic Office Visit 11/18/2005 11:10a Main Office Olvin Nguyen 244.9 Hypothyroidism Other Reji Henriquez Unspec 627.2 Menopausal Or Female Climacteric State, Symptomatic Office Visit 09/21/2005 11:20a Main Office Olvin Henriquez, 780.79 Malaise And M.D. Fatigue Other 364.00 Iridocyclitis Acute & Subacute Unspec 704.00 Alopecia Unspec Office Visit 09/10/2005 1:40p Main Office Olvin Banegas.9 Hypothyroidism Other Reji Henriquez Unspec Plan of Treatment 06/09/2018 - Forrest Thomson, MDR55 Syncope and wpuuyhorT66.81 Restless legs syndromeAllComments:~B_~U_Medication Management~b_~u_ Patient Understands medications she's taking? Yes No Are there Barriers to Adherence? Yes No Has the patient been asked about herbal supplements and therapies, and OTC meds? Yes No
[2018-07-07 14:43] LABS: Albumin 4.3 g/dL (3.2-5.2); Albumin/Globulin Ratio 1.7 (1-3); BUN/Creatinine Ratio 21.2 (8-20); Calcium 9.4 mg/dL (8.6-10.3); EGFR Non-African American 67.8 (>60); Globulin 2.6 g/dL (2-4); Magnesium 2.2 mg/dL (1.9-2.7); Potassium 4.1 mmol/L (3.5-5.0); Total Bilirubin 0.4 mg/dL (0.2-1.0); Total Protein 6.9 g/dL (6.4-8.9)
[2018-07-07 15:15] VITALS: BP 105/62
[2018-07-07 15:36] LABS: TSH (Thyroid Stimulating Horm) 1.22 mcIU/mL (0.34-5.60)
[2018-07-07 15:38] LABS: Free T4 3.28 ng/dL (0.61-1.12)
--- NOTE | 2018-07-08 09:12 | PN ---
Progress Note - Progress Note Date of Service: 07/07/18 Note: TSH and free T4 labs obtained T4 elevated at 3.28 Called patient at 9 AM to discuss results She was requesting her results to be mailed to her home The results were mailed by the receivable clerk on 07/08/18 She will follow up with Dr. fuentes
== END 2018-07-07 15:14 | disposition home or self-care (01) ==
LOC: ED 12:46
DX: R00.0 Tachycardia, unspecified (principal); R94.6 Abnormal results of thyroid function studies
CPT/HCPCS: 36415; 71046; 80053; 83605; 83735; 84439; 84443; 84484; 85025; 85379; 93005; 99282